=== PATIENT | female | born 1950 ===

== ENCOUNTER 2017-04-06 07:45 | Inpatient (IN) | payer OTHER ==
[~2017-04-06] VITALS: Ht 157.5 cm; Wt 68.0 kg
[2017-04-06] MEDS ORDERED: PRAVASTATIN SOD40 MG PO (09:54)
[2017-04-06] MEDS ORDERED: DIOVAN HCT 3201 EAC1 PO (09:54)
[2017-04-06] MEDS ORDERED: CATAFLAN PO (09:55)
[2017-04-06] MEDS ORDERED: FLEXERIL PO (09:55)
[2017-04-16] MEDS ORDERED: CEFADROXIL500 MG PO (08:09)
[2017-04-16] MEDS ORDERED: XARELTO10 MG PO (08:09)
[2017-04-16] MEDS ORDERED: PERCOCET 5-3251 EACH PO (08:09)
== END 2017-04-16 16:21 | DRG 470 ==
LOC: SURH 04-13 06:39 → O/R 04-13 06:39 → SURH 04-13 07:45
PROVIDERS: Orthopaedic Surgery
PROC: 0QND0ZZ Release Right Patella, Open Approach (ICD-10-PCS; 2017-04-13)
PROC: 0SRC0J9 Replacement of Right Knee Joint with Synthetic Substitute, Cemented, Open Approach (ICD-10-PCS; principal; 2017-04-13 16:00)
DX: M17.11 Unilateral primary osteoarthritis, right knee (principal); M80.00XA Age-related osteoporosis with current pathological fracture, unspecified site, initial encounter for fracture; D62 Acute posthemorrhagic anemia; M22.11 Recurrent subluxation of patella, right knee; E78.00 Pure hypercholesterolemia, unspecified; I11.9 Hypertensive heart disease without heart failure

== ENCOUNTER 2023-11-24 07:45 | Inpatient (IN) | payer OTHER ==
[~2023-11-24] VITALS: Ht 162.6 cm; Wt 76.7 kg
[~2023-11-24 07:45] MED LIST: CATAFLAN PO; CEFADROXIL500 MG PO; DIOVAN HCT 3201 EAC1 PO; FLEXERIL PO; PERCOCET 5-3251 EACH PO; PRAVASTATIN SOD40 MG PO; XARELTO10 MG PO
[2023-11-24 09:29] LABS: URINE APPEARANCE Clear; URINE BILIRRUBIN Negative (NEGATIVE); URINE BLOOD Negative; URINE COLOR Yellow; URINE GLUCOSE Negative (NEGATIVE); URINE KETONE Negative (NEGATIVE); URINE LEUKOCYTE Trace; URINE NITRATE Negative; URINE PROTEIN Negative (NEGATIVE); URINE UROBILINOGEN 0.2 E.U./dl
[2023-11-24 09:34] LABS: HEMATOCRIT 43.2 % (36.0-45.00); HEMOGLOBIN 14.6 g/dL (12.0-15.00); MEAN CELL VOLUME 86.3 fL (80.00-100.00); MEAN CORPUSCULAR HGB CONC 33.7 g/dl (32.0-36.0); PLATELET COUNT 294 K/uL (150-450); RED BLOOD COUNT 5.01 M/uL (4.00-6.00); RED CELL DISTRIBUTION WIDTH 13.4 % (11.5-14.5)
[2023-11-24 09:34] LABS: URINE BACTERIA 30.2 uL (0.0-1933); URINE EPITHELIAL CELLS 12.9 uL (0.0-38.8); URINE RBC 19.5 uL (0.0-20.8); URINE WBC 9.2 uL (0.0-23.2)
[2023-11-24 09:51] LABS: PARTIAL THROMBOPLASTIN TIME 29.1 SECONDS (22.0-34.0); PROTHROMBIN TIME 10.9 SECONDS (9.0-11.5)
[2023-11-24 10:11] LABS: URINE CAST 0.15 uL (0.0-1.40)
[2023-11-24 10:15] LABS: ALBUMIN 3.8 gm/dL (3.4-5.0); BILIRUBIN TOTAL 1.23 mg/dL (0.3-1.2); CALCIUM 9.6 mg/dL (8.5-10.1); CREATININE SERUM 0.73 mg/dL (0.55-1.02); GFR 78.15; GLOBULINA 3.6 G/DL (2.4-3.5); POTASSIUM 3.97 mEq/L (3.5-5.1); TOTAL PROTEIN 7.4 gm/dL (6.4-8.2)
[2023-11-30] MEDS ORDERED: CEFAZOLIN SODIUM 1,000 MG VIAL ONE ×2 (06:16→09:29)
[2023-11-30] MEDS ORDERED: TRANEXAMIC ACID 100MG/1ML (1000MG) AMPUL IV ONE ×2 (06:16→08:15)
[2023-11-30] MEDS ORDERED: LIDOCAINE HCL 1%/EPINEPHRINE 20ML VIAL IJ ONE ×2 (06:59→08:15)
[2023-11-30] MEDS ORDERED: KETOROLAC TROMETHAMINE 60 MG VIAL IM ONE ×2 (06:59→08:15)
[2023-11-30] MEDS ORDERED: VANCOMYCIN HCL 1,000 MG VIAL ONE (06:59)
[2023-11-30] MEDS ORDERED: BUPIVACAINE HCL/MPF 0.5% 30ML VIAL ONE (06:59)
[2023-11-30] MEDS ORDERED: POVIDONE-IODINE 118 ML BOTT TOP ONE ×2 (08:03→08:15)
[2023-11-30] MEDS ORDERED: CEFAZOLIN SODIUM 1,000 MG VIAL IV ONE (08:15)
[2023-11-30] MEDS ORDERED: ISOPROPYL ALCOHOL 30 ML OUNCE TOP ONE (08:15)
[2023-11-30] MEDS ORDERED: BUPIVACAINE HCL/PF 0.25% 30ML VIAL InF ONE (08:15)
[2023-11-30] MEDS ORDERED: MORPHINE SULFATE 4 MG/ML VIAL IV ONE (08:15)
[2023-11-30] MEDS ORDERED: SODIUM CHLORIDE 0.45 % 1,000 ML IV SCH (09:00)
[2023-11-30] MEDS ORDERED: OxyCODONE HCL 5 MG TABLET (ROXICODONE) PO PRN (09:00)
[2023-11-30] MEDS ORDERED: ONDANSETRON HCL 2 MG/ML VIAL IV PRN (09:00)
[2023-11-30] MEDS ORDERED: MORPHINE SULFATE 4 MG/ML CARTRIDGE IV PRN (09:00)
[2023-11-30] MEDS ORDERED: CEFAZOLIN SODIUM 1,000 MG VIAL IV SCH (09:00)
[2023-11-30] MEDS ORDERED: GABAPENTIN 300 MG CAPSULE PO SCH (09:00)
[2023-11-30] MEDS ORDERED: ACETAMINOPHEN 500 MG GEL..CAP PO SCH (12:00)
[2023-11-30 13:00] VITALS: BP 158/77
[2023-11-30 14:00] VITALS: BP 150/78
[2023-11-30] MEDS ORDERED: ENALAPRILAT DIHYDRATE 1.25 MG/ML VIAL IV PRN (15:00)
[2023-11-30 19:02] VITALS: BP 149/89
[2023-11-30] MEDS ORDERED: FAMOTIDINE/PF 20 MG in 0.9 % SODIUM CHLORIDE 8 ML IV PUSH SCH (21:00)
[2023-12-01] VITALS: BP 138/86
[2023-12-01 06:33] LABS: HEMATOCRIT 38.8 % (36.0-45.00); MEAN CELL VOLUME 84.9 fL (80.00-100.00); MEAN CORPUSCULAR HEMOGLOBIN 28.4 pg (27.00-32.0); MEAN CORPUSCULAR HGB CONC 33.4 g/dl (32.0-36.0); PLATELET COUNT 227 K/uL (150-450); RED BLOOD COUNT 4.57 M/uL (4.00-6.00); RED CELL DISTRIBUTION WIDTH 13.7 % (11.5-14.5)
[2023-12-01] MEDS ORDERED: PERCOCET 5-3251 EACH PO (07:40)
[2023-12-01] MEDS ORDERED: DUI500 PO (07:40)
[2023-12-01] MEDS ORDERED: ELIQUIS2.5 MG PO (07:40)
[2023-12-01 08:47] VITALS: BP 139/81
[2023-12-01] MEDS ORDERED: IRON FUM,PS/FOLIC ACID/VITC/B3 1 CAP CAPSULE PO SCH ×2 (09:00→17:00)
[2023-12-01] MEDS ORDERED: SENNOSIDES 1 TAB TABLET PO SCH (09:00)
[2023-12-01] MEDS ORDERED: VALSARTAN PO SCH (09:00)
[2023-12-01] MEDS ORDERED: HYDROCHLOROTHIAZIDE PO SCH (09:00)
[2023-12-01] MEDS ORDERED: APIXABAN 2.5 MG TABLET PO SCH (09:00)
[2023-12-01 12:59] LABS: ALBUMIN 2.9 gm/dL (3.4-5.0); BILIRUBIN TOTAL 1.27 mg/dL (0.3-1.2); CALCIUM 8.8 mg/dL (8.5-10.1); CREATININE SERUM 0.66 mg/dL (0.55-1.02); GFR 87.79; GLOBULINA 3.1 G/DL (2.4-3.5); POTASSIUM 3.76 mEq/L (3.5-5.1)
[2023-12-01] MEDS ORDERED: FAMOTIDINE/PF 20 MG/2 ML VIAL ONE (16:15)
[2023-12-01] MEDS ORDERED: VITAMIN B COMPLEX 1 EACH PO SCH (17:00)
[2023-12-01] MEDS ORDERED: Cyanocobalamin/Mecobalamin 1 TAB.SL SL SCH (17:00)
[2023-12-01 17:53] VITALS: BP 160/77
[2023-12-02 02:53] VITALS: BP 148/83
[2023-12-02 06:28] LABS: HEMATOCRIT 37.2 % (36.0-45.00); HEMOGLOBIN 12.8 g/dL (12.0-15.00); MEAN CELL VOLUME 85.4 fL (80.00-100.00); MEAN CORPUSCULAR HEMOGLOBIN 29.3 pg (27.00-32.0); MEAN CORPUSCULAR HGB CONC 34.3 g/dl (32.0-36.0); PLATELET COUNT 222 K/uL (150-450); RED BLOOD COUNT 4.36 M/uL (4.00-6.00); RED CELL DISTRIBUTION WIDTH 13.4 % (11.5-14.5)
[2023-12-02 08:00] VITALS: BP 119/84
[2023-12-02 16:00] VITALS: BP 150/84
== END 2023-12-02 18:10 | disposition home or self-care (01) | DRG 470 ==
LOC: O/R 11-30 05:18 → SURH 11-30 07:45 → OB/GYN 11-30 10:32 → SURH 11-30 16:30 → OB/GYN 12-02 18:10
PROVIDERS: ADMIT Orthopaedic Surgery; ATTEND Orthopaedic Surgery
PROC: 0SRD0J9 Replacement of Left Knee Joint with Synthetic Substitute, Cemented, Open Approach (ICD-10-PCS; principal; 2023-11-30 16:30)
DX: M17.12 Unilateral primary osteoarthritis, left knee (principal); D62 Acute posthemorrhagic anemia; M22.12 Recurrent subluxation of patella, left knee; I10 Essential (primary) hypertension; E78.5 Hyperlipidemia, unspecified